=== PATIENT | male | born 1995 | race Two or more races ===

== ENCOUNTER 2016-12-22 13:45 | Emergency (ER) | payer MEDICAID, OTHER ==
[~2016-12-22] VITALS: Ht 177.8 cm; Wt 87.9 kg
[2016-12-22] MEDS ORDERED: SODIUM CHLORIDE FLUSH 10ML SYR IVF ONE (14:30)
[2016-12-22 14:55] LABS: BLOOD UREA NITROGEN 13 mg/dL (7-18)
[2016-12-22] MEDS ORDERED: OXYcodone/APAP 5/325MG TABLET ONE (15:54)
[2016-12-22] MEDS ORDERED: ONDANSETRON ODT 4 MG ONE (15:54)
[2016-12-22] MEDS ORDERED: ONDANSETRON ODT 4 MG PO ONE (16:00)
[2016-12-22] MEDS ORDERED: OXYcodone/APAP 5/325MG TABLET PO ONE (16:00)
[2016-12-22] MEDS ORDERED: RANI150T4 PO (16:42)
[2016-12-22 17:54] VITALS: BP 120/76
== END 2016-12-22 17:57 | disposition home or self-care (01) ==
LOC: ED 17:32
DX: R10.12 Left upper quadrant pain (principal); J02.8 Acute pharyngitis due to other specified organisms; B34.9 Viral infection, unspecified
CPT/HCPCS: 36415; 76700; 80048; 80076; 81001; 82040; 83690; 85025; 86308; 87081; 87147; 87880; 99285; Q0162

== ENCOUNTER 2020-03-23 21:33 | Emergency (ER) | payer OTHER ==
[~2020-03-23] VITALS: Ht 177.8 cm; Wt 104.6 kg
[~2020-03-23 21:33] MED LIST: RANI150T4 PO
--- NOTE | 2020-03-23 21:45 | NUR ---
PT REPORTS DOG BITE TO RIGHT HAND FROM UNKNOWN DOG (PITBULL). PLACED ON VITALS MONITORS, CALL LIGHT WITHIN REACH.
[2020-03-23] MEDS ORDERED: AMOXICILLIN/CLAV 875-125MG TABLET ONE (21:55)
[2020-03-23] MEDS ORDERED: IBUPROFEN 600 MG TABLET ONE (21:55)
[2020-03-23] MEDS ORDERED: DIPH,PERTUSS(ACELL),TET VAC/PF 0.5 ML IM-VACC ONE ×2 (21:55→22:00)
[2020-03-23] MEDS ORDERED: AMOXICILLIN/CLAV 875-125MG TABLET PO ONE (22:00)
[2020-03-23] MEDS ORDERED: IBUPROFEN 600 MG TABLET PO ONE (22:00)
[2020-03-23] MEDS ORDERED: BUPIVACAINE 0.25% ONE (22:09)
[2020-03-23] MEDS ORDERED: BUPIVACAINE 0.25% INFIL ONE (22:30)
[2020-03-23] MEDS ORDERED: NEOSPORIN OINT. PKT 1 PACKET ONE (22:48)
[2020-03-23 23:05] VITALS: BP 118/80
== END 2020-03-23 23:15 | disposition home or self-care (01) ==
LOC: ED 22:33
DX: S61.251A Open bite of left index finger without damage to nail, initial encounter (principal); S61.211A Laceration without foreign body of left index finger without damage to nail, initial encounter; W54.0XXA Bitten by dog, initial encounter; Y93.89 Activity, other specified; Y92.410 Unspecified street and highway as the place of occurrence of the external cause; Y99.8 Other external cause status
CPT/HCPCS: 12041; 36430; 90471; 90715; 99285